=== PATIENT | male | born 1980 | race Caucasian/White ===

== ENCOUNTER 2023-04-29 23:48 | Inpatient (IN) | payer MEDICAID ==
[~2023-04-29] VITALS: Ht 162.6 cm; Wt 75.7 kg
[2023-04-29 23:58] VITALS: BP 113/69; PULSE 61; RESP 18; TEMP 97.9; O2SAT 100
[2023-04-30] MEDS ORDERED: ALUMINUM HYD/MAG/SIMETHICONE 30 ML UDC ONE (00:21)
[2023-04-30] MEDS ORDERED: DICYCLOMINE HCL LIQUID 10 MG/5 ML UDC ONE (00:22)
[2023-04-30] MEDS: DICYCLOMINE HCL LIQUID 20 MG, ALUMINUM HYD/MAG/SIMETHICONE 30 ML, LIDOCAINE VISCOUS 2% ... PO ONE (00:37)
[2023-04-30 00:43] LABS: HEMOGLOBIN 16.7 g/dL (12.0-18.0)
[2023-04-30 00:47] LABS: BASOPHILS # (AUTO) 0.1 K/uL (0.00-0.22); BASOPHILS % (AUTO) 0.3 % (0.0-2.0); HEMATOCRIT 48.3 % (36-52); LYMPHOCYTES # (AUTO) 0.6 K/uL (2.0-11.5); LYMPHOCYTES % (AUTO) 3.1 % (20.5-51.1); MEAN CORPUSCULAR HEMOGLOBIN 30 pg (27-31); MEAN CORPUSCULAR HGB CONC 35 g/dL (33-37); MEAN CORPUSCULAR VOLUME 86.5 fL (80-94); MONOCYTES # (AUTO) 0.4 K/uL (0.8-1.0); MONOCYTES % (AUTO) 1.9 % (1.7-9.3); NEUTROPHILS # (AUTO) 18.2 K/uL (1.8-7.7); PLATELET COUNT (AUTO) 286 K/uL (140-450); RED BLOOD CELL COUNT(AUTO) 5.58 MIL/uL (4.20-6.10); WHITE BLOOD COUNT (AUTO) 19.3 K/uL (4.8-10.8)
[2023-04-30 00:47] LABS: APPEARANCE,URINE CLEAR (CLEAR); BILIRUBIN,URINE 1+ (NEGATIVE); BLOOD, URINE NEGATIVE (NEGATIVE); LEUKOCYTE ESTERASE ,URINE NEGATIVE (NEGATIVE); NITRITE, URINE NEGATIVE (NEGATIVE); PROTEIN,URINE TRACE (NEGATIVE); UGLUCOSE NEGATIVE (NEGATIVE); UROBILINOGEN,URINE 0.2 EU/dL (0.2 - 1)
[2023-04-30 00:57] LABS: COLOR,URINE DARK YELLOW (YELLOW)
[2023-04-30 00:58] LABS: ICTOTEST POSITIVE (NEGATIVE)
[2023-04-30 00:59] LABS: BACTERIA,URINE OCCASSIONAL /HPF (None Seen); MUCUS,URINE 1+ /LPF (None Seen); RBC,URINE 0-5 /HPF (0-5); SQUAMOUS EPITHELIAL CELL,UR 0-3 (FEW) /LPF (0-3 (FEW)); WBC,URINE 0-5 /HPF (0-5)
[2023-04-30 00:59] LABS: ANION GAP 13.1 (8-16); CALCIUM 8.6 mg/dL (8.5-10.1); CARBON DIOXIDE 28.9 mmol/L (21-32); CREATININE 1.1 mg/dL (0.6-1.3)
[2023-04-30 01:08] LABS: NEUTROPHILS % (AUTO) 94.7 % (42.2-75.2)
[2023-04-30 01:17] LABS: ALANINE AMINOTRANSFERASE 529 U/L (12-78); ALBUMIN 3.9 g/dL (3.4-5.0); ALKALINE PHOSPHATASE 180 U/L (50-136); ASPARTATE AMINOTRANSFERASE 285 U/L (15-37); BILIRUBIN,DIRECT 1.2 mg/dL (0.0-0.3); TOTAL BILIRUBIN 1.9 mg/dL (0.0-1.0); TOTAL PROTEIN, SERUM 8.4 g/dL (6.4-8.2)
[2023-04-30 01:44] LABS: LIPASE > 1500 U/L (16-77)
[2023-04-30 03:15] VITALS: O2SAT 99
[2023-04-30] MEDS: NACL 0.9% 2,000 ML IV ONE (03:34)
[2023-04-30] MEDS ORDERED: ACETAMINOPHEN EXTRA STRENGTH 500 MG TAB PO PRN (03:55)
[2023-04-30] MEDS: MORPHINE SULFATE 2 MG/ML SYR IVP PRN (04:56)
[2023-04-30] MEDS: NACL 0.9% 1,000 ML IV SCH (05:05)
[2023-04-30 05:19] VITALS: PULSE 54; RESP 18; O2SAT 97
[2023-04-30 08:00] VITALS: BP 100/61; PULSE 54; PULSE 57; RESP 20; TEMP 98.1; O2SAT 99
[2023-04-30] MEDS ORDERED: MELATONIN 3 MG TAB PO PRN (10:25)
[2023-04-30] MEDS ORDERED: ONDANSETRON 4 MG/2 ML VIAL IVP PRN (10:25)
[2023-04-30] MEDS ORDERED: MAG SULF 2000 MG/WATER PREMIX 50 ML IV PRN (10:25)
[2023-04-30] MEDS ORDERED: POLYETHYLENE GLYCOL 17 GM/PKT PO PRN (10:25)
[2023-04-30 12:00] VITALS: PULSE 68
[2023-04-30] MEDS: HYDROcodone/APAP 5/325 MG 1 TAB TAB PO PRN (12:24)
[2023-04-30] MEDS: PIPERACILLIN/TAZOBACTAM 3.375 GM in DEXTROSE 5% 50 ML IV SCH (13:00)
[2023-04-30 14:35] VITALS: BP 100/61; PULSE 57; RESP 20; TEMP 98.1; O2SAT 99
[2023-04-30] MEDS ORDERED: DEXTROSE 50% 50 ML SYR IVP PRN (17:30)
[2023-04-30] MEDS ORDERED: INSULIN LISPRO SLIDING SCALE 100 UNITS/ML VIAL SUBQ PRN (17:30)
[2023-04-30 20:00] VITALS: BP 101/56; PULSE 54; PULSE 56; PULSE 58; RESP 18; TEMP 100.9; O2SAT 95; O2SAT 97
[2023-04-30] MEDS: BLOOD GLUCOSE MONITORING 1 DEV DEV FS SCH (21:54)
[2023-04-30] MEDS: ACETAMINOPHEN 325 MG TAB PO PRN (21:55)
[2023-05-01 06:43] LABS: ALBUMIN 2.8 g/dL (3.4-5.0); ANION GAP 9.2 (8-16); CALCIUM 7.7 mg/dL (8.5-10.1); CARBON DIOXIDE 27.7 mmol/L (21-32); CREATININE 0.7 mg/dL (0.6-1.3); MAGNESIUM 1.6 mg/dL (1.8-2.4); PHOSPHORUS 2.1 mg/dL (2.5-4.9); TOTAL BILIRUBIN 0.9 mg/dL (0.0-1.0); TOTAL PROTEIN, SERUM 6.1 g/dL (6.4-8.2)
[2023-05-01 06:44] LABS: BASOPHILS # (AUTO) 0.1 K/uL (0.00-0.22); BASOPHILS % (AUTO) 0.5 % (0.0-2.0); EOSINOPHILS # (AUTO) 0.2 K/uL (0-0.4); EOSINOPHILS % (AUTO) 1.4 % (0.0-4.0); HEMATOCRIT 40.4 % (36-52); LYMPHOCYTES # (AUTO) 1.3 K/uL (2.0-11.5); LYMPHOCYTES % (AUTO) 8.4 % (20.5-51.1); MEAN CORPUSCULAR HEMOGLOBIN 30 pg (27-31); MEAN CORPUSCULAR HGB CONC 35 g/dL (33-37); MONOCYTES # (AUTO) 0.7 K/uL (0.8-1.0); MONOCYTES % (AUTO) 4.7 % (1.7-9.3); NEUTROPHILS # (AUTO) 12.7 K/uL (1.8-7.7); PLATELET COUNT (AUTO) 192 K/uL (140-450); RED BLOOD CELL COUNT(AUTO) 4.64 MIL/uL (4.20-6.10); RED CELL DISTRIBUTION WIDTH 14.4 % (11.6-13.7); WHITE BLOOD COUNT (AUTO) 14.9 K/uL (4.8-10.8)
[2023-05-01 06:49] LABS: POTASSIUM 2.9 mmol/L (3.5-5.1)
[2023-05-01 08:00] VITALS: BP 101/57; PULSE 103; PULSE 57; PULSE 69; RESP 20; TEMP 98.4; O2SAT 97; O2SAT 98
[2023-05-01] MEDS: PANTOPRAZOLE 40 MG INJ VIAL IVP SCH (09:44)
[2023-05-01] MEDS: KCL 20 MEQ IN 100 mL PREMIX 200 ML IV PRN (09:50)
[2023-05-01 15:22] VITALS: BP 101/57; PULSE 103; RESP 20; TEMP 98.4; O2SAT 98
[2023-05-01] MEDS: MAGNESIUM OXIDE 400 MG TAB PO ONE (18:43)
[2023-05-01 20:00] VITALS: BP 104/58; PULSE 57; PULSE 65; PULSE 69; RESP 20; TEMP 97.8; O2SAT 96; O2SAT 97
[2023-05-02 06:13] LABS: BASOPHILS # (AUTO) 0.1 K/uL (0.00-0.22); BASOPHILS % (AUTO) 0.6 % (0.0-2.0); EOSINOPHILS # (AUTO) 0.9 K/uL (0-0.4); EOSINOPHILS % (AUTO) 7.3 % (0.0-4.0); HEMATOCRIT 39.8 % (36-52); HEMOGLOBIN 13.8 g/dL (12.0-18.0); LYMPHOCYTES # (AUTO) 1.8 K/uL (2.0-11.5); LYMPHOCYTES % (AUTO) 14.8 % (20.5-51.1); MEAN CORPUSCULAR HEMOGLOBIN 30 pg (27-31); MEAN CORPUSCULAR HGB CONC 35 g/dL (33-37); MEAN CORPUSCULAR VOLUME 86.2 fL (80-94); MONOCYTES # (AUTO) 0.7 K/uL (0.8-1.0); MONOCYTES % (AUTO) 5.9 % (1.7-9.3); NEUTROPHILS # (AUTO) 8.7 K/uL (1.8-7.7); NEUTROPHILS % (AUTO) 71.4 % (42.2-75.2); PLATELET COUNT (AUTO) 201 K/uL (140-450); RED BLOOD CELL COUNT(AUTO) 4.61 MIL/uL (4.20-6.10); RED CELL DISTRIBUTION WIDTH 14.1 % (11.6-13.7); WHITE BLOOD COUNT (AUTO) 12.2 K/uL (4.8-10.8)
[2023-05-02 06:31] LABS: ALBUMIN 2.7 g/dL (3.4-5.0); CARBON DIOXIDE 29.4 mmol/L (21-32); CREATININE 0.6 mg/dL (0.6-1.3); PHOSPHORUS 2.5 mg/dL (2.5-4.9); POTASSIUM 3.4 mmol/L (3.5-5.1); TOTAL BILIRUBIN 0.7 mg/dL (0.0-1.0); TOTAL PROTEIN, SERUM 6.5 g/dL (6.4-8.2)
[2023-05-02 08:00] VITALS: BP 117/75; PULSE 59; RESP 15; RESP 19; TEMP 98.5; O2SAT 99
[2023-05-02] MEDS ORDERED: KETOROLAC 30 MG/ML VIAL ONE (09:00)
[2023-05-02] MEDS ORDERED: ROCURONIUM 50 MG/5 ML VIAL IV ONE (09:00)
[2023-05-02] MEDS ORDERED: SUCCINYLCHOLINE CHLORIDE 200 MG/10 ML VIAL IVP ONE (09:00)
[2023-05-02] MEDS ORDERED: PROPOFOL 200 MG/20 ML VIAL IV ONE (09:00)
[2023-05-02] MEDS ORDERED: SEVOFLURANE 250 ML BTL INH ONE (09:00)
[2023-05-02] MEDS: MIDAZOLAM 2 MG/2 ML VIAL ONE (09:03)
[2023-05-02] MEDS: fentaNYL citrate 0.05 MG/ML VIAL ONE (09:04)
[2023-05-02] MEDS: LIDOCAINE/EPI 1% 1:100000 20 ML VIAL INJ ONE (09:22)
[2023-05-02] MEDS: BUPIVACAINE-MPF 0.25% 30 ML VIAL INJ ONE (09:22)
[2023-05-02] MEDS: ONDANSETRON 4 MG/2 ML VIAL ONE (09:29)
[2023-05-02] MEDS: METOCLOPRAMIDE 10 MG/2 ML INJ VIAL ONE (09:29)
[2023-05-02] MEDS: LIDOCAINE MPF 2% 100 MG/5 ML VIAL INJ ONE (09:29)
[2023-05-02] MEDS: NEOSTIGMINE 1:1000 10 MG/10 ML VIAL ONE (09:30)
[2023-05-02] MEDS: KETOROLAC 30 MG/ML VIAL ONE (09:30)
[2023-05-02] MEDS: GLYCOPYRROLATE 0.2 MG/ML VIAL ONE (09:30)
[2023-05-02] MEDS ORDERED: diphenhydrAMINE 50 MG/ML VIAL IVP PRN (10:25)
[2023-05-02] MEDS ORDERED: MEPERIDINE 25 MG/ML SYR IVP PRN (10:25)
[2023-05-02] MEDS ORDERED: HYDROmorphone 1 MG/ML AMP IVP PRN (10:25)
[2023-05-02] MEDS ORDERED: ONDANSETRON 4 MG/2 ML VIAL IVP PRN (10:25)
[2023-05-02] MEDS: NACL 0.9% 1,000 ML IV SCH (11:43)
[2023-05-02] MEDS: MORPHINE SULFATE 2 MG/ML SYR IVP PRN (12:23)
[2023-05-02 16:00] VITALS: BP 102/55; PULSE 53; RESP 13; TEMP 97.4; O2SAT 97
[2023-05-02 20:00] VITALS: BP 117/62; PULSE 58; RESP 18; TEMP 98; O2SAT 96; O2SAT 98
[2023-05-03] VITALS: BP 110/60; PULSE 60; RESP 18; TEMP 98.2; O2SAT 98
[2023-05-03 04:00] VITALS: BP 100/70; PULSE 59; RESP 18; TEMP 98.5; O2SAT 98
[2023-05-03 06:16] LABS: BASOPHILS % (AUTO) 0.4 % (0.0-2.0); EOSINOPHILS # (AUTO) 0.2 K/uL (0-0.4); EOSINOPHILS % (AUTO) 1.5 % (0.0-4.0); HEMATOCRIT 40.1 % (36-52); LYMPHOCYTES # (AUTO) 1.4 K/uL (2.0-11.5); LYMPHOCYTES % (AUTO) 10.7 % (20.5-51.1); MEAN CORPUSCULAR HEMOGLOBIN 30 pg (27-31); MEAN CORPUSCULAR HGB CONC 35 g/dL (33-37); MEAN CORPUSCULAR VOLUME 85.7 fL (80-94); MONOCYTES # (AUTO) 0.7 K/uL (0.8-1.0); MONOCYTES % (AUTO) 5.1 % (1.7-9.3); NEUTROPHILS # (AUTO) 10.7 K/uL (1.8-7.7); NEUTROPHILS % (AUTO) 82.3 % (42.2-75.2); PLATELET COUNT (AUTO) 247 K/uL (140-450); RED BLOOD CELL COUNT(AUTO) 4.68 MIL/uL (4.20-6.10); RED CELL DISTRIBUTION WIDTH 13.9 % (11.6-13.7)
[2023-05-03 08:00] VITALS: PULSE 60; RESP 20; O2SAT 99
[2023-05-03 08:26] LABS: ALBUMIN 2.9 g/dL (3.4-5.0); ANION GAP 10.9 (8-16); CALCIUM 8.4 mg/dL (8.5-10.1); CARBON DIOXIDE 27.5 mmol/L (21-32); CREATININE 0.7 mg/dL (0.6-1.3); PHOSPHORUS 3.3 mg/dL (2.5-4.9); POTASSIUM 3.4 mmol/L (3.5-5.1); TOTAL BILIRUBIN 0.8 mg/dL (0.0-1.0); TOTAL PROTEIN, SERUM 6.3 g/dL (6.4-8.2)
[2023-05-03] MEDS ORDERED: METR-435 PO (12:04)
[2023-05-03] MEDS ORDERED: CIPR500T4 PO (12:04)
[2023-05-03] MEDS ORDERED: ACET-9525 PO (12:05)
[2023-05-03 12:26] VITALS: BP 123/75; PULSE 18; RESP 18; TEMP 97.3
== END 2023-05-03 13:20 | disposition home or self-care (01) | DRG 710 ==
LOC: MED 23:48 → MTU 04-30 03:44
PROVIDERS: ADMIT Student in an Organized Health Care Education/Training Program; ATTEND Student in an Organized Health Care Education/Training Program
PROC: 0FT44ZZ Resection of Gallbladder, Percutaneous Endoscopic Approach (ICD-10-PCS; principal; 2023-05-02 10:20)
DX: A41.9 Sepsis, unspecified organism (principal); K85.10 Biliary acute pancreatitis without necrosis or infection; K80.42 Calculus of bile duct with acute cholecystitis without obstruction; K76.0 Fatty (change of) liver, not elsewhere classified; R73.9 Hyperglycemia, unspecified; Z79.899 Other long term (current) drug therapy
CPT/HCPCS: 36415; 76705; 80048; 80053; 80076; 81001; 82948; 83036; 83690; 83735; 84100; 85025; 87081; 88304; 96361; 96374; 99285; C9113; J0330; J1644; J1815; J1885; J2001; J2250; J2270; J2405; J2543; J2704; J2710; J2765; J3010; J3480; J3490; J7030; J7060